=== PATIENT | female | born 1965 | race Caucasian/White ===

== ENCOUNTER 2019-05-25 09:39 | Emergency (ER) | payer BC ==
[~2019-05-25] VITALS: Ht 160 cm; Wt 62.6 kg
[2019-05-25 09:39] VITALS: BP_SYST 135
[2019-05-25 09:45] VITALS: BP_SYST 135
[2019-05-25] MEDS ORDERED: BACITRACIN 1 GM OINT TP ONE (09:45)
[2019-05-25] MEDS ORDERED: IBUPROFEN 600 MG TABLET PO ONE (09:45)
== END 2019-05-25 09:45 | disposition home or self-care (01) ==
LOC: SED 09:39
DX: M79.632 Pain in left forearm (principal); V43.52XA Car driver injured in collision with other type car in traffic accident, initial encounter; Y93.89 Activity, other specified; Y92.410 Unspecified street and highway as the place of occurrence of the external cause; Y99.8 Other external cause status
CPT/HCPCS: 99283